=== PATIENT | female | born 1965 | race Caucasian/White ===

== ENCOUNTER → 2020-05-15 15:26 | Outpatient (CLI) | payer BC, SELFPAY ==
[2020-05-15 16:24] LABS: COVID19 -Nasal RAPID Negative (Negative)
== END ==
PROVIDERS: Visit Provider Physician Assistant
DX: Z11.59 Encounter for screening for other viral diseases (principal)
CPT/HCPCS: 87635

== ENCOUNTER → 2020-12-27 14:19 | Outpatient (CLI) | payer BC, SELFPAY ==
--- NOTE | 2020-12-27 14:20 | DI.RAD.S_ITS ---
PROCEDURE: XR CHEST 2V INDICATIONS: cough TECHNIQUE: 2 views of the chest were acquired. COMPARISON: None. FINDINGS: Surgical changes and devices: None. Lungs and pleura: Lungs are clear. No pleural effusions or pneumothorax. Mediastinum: Mediastinal contours are normal. Heart size is normal. Bones and chest wall: No suspicious bony abnormalities. Soft tissues appear unremarkable. IMPRESSION: Normal for age, source of current cough symptoms is not seen. Dictated by: Randal Dunn M.D. on 12/27/2020 at 14:44 Approved by: Randal Dunn M.D. on 12/27/2020 at 14:44
== END ==
PROVIDERS: Referring Provider Physician Assistant; Visit Provider Physician Assistant
DX: R05 Cough (principal)
CPT/HCPCS: 71046

== ENCOUNTER → 2021-07-20 09:53 | Outpatient (CLI) | payer BC, SELFPAY ==
[2021-07-20 10:27] LABS: COVID19 -Nasal RAPID POSITIVE (Negative)
== END ==
PROVIDERS: Visit Provider Physician Assistant
DX: U07.1 COVID-19 (principal)
CPT/HCPCS: 87635

== ENCOUNTER 2023-07-19 14:26 | Emergency (ER) | payer BC, SELFPAY ==
[2023-07-19] VITALS (11 sets, daily range): BP systolic 118–164; BP diastolic 78–89; PULSE 77–89; RESP 16–29; TEMP 36.6; O2SAT 97–100; BMI 21.4
--- NOTE | 2023-07-19 14:37 | DI.RAD.S_ITS ---
PROCEDURE: XR CHEST 1V INDICATIONS: chest pain TECHNIQUE: One view of the chest was acquired. COMPARISON: [facility], CR, XR CHEST 2V, 12/27/2020, 14:25. FINDINGS: Surgical changes and devices: None. Lungs and pleura: Lungs are clear. No pleural effusions or pneumothorax. Mediastinum: Mediastinal contours appear normal. Heart size is normal. Bones and chest wall: No suspicious bony lesions. Overlying soft tissues appear unremarkable. IMPRESSION: No acute cardiopulmonary abnormality is seen. Dictated by: Amrit Biswas M.D. on 07/19/2023 at 15:59 Approved by: Amrit Biswas M.D. on 07/19/2023 at 16:00
[2023-07-19 15:06] LABS: Add Manual Diff / Slide Review NO; Basophils Absolute Auto 0 /uL (0-100); Basophils Percent Auto 0.8 % (0-2); Eosinophils Absolute Auto 100 /uL (0-450); Eosinophils Percent Auto 2.1 % (2-4); Hemoglobin 12.4 g/dL (12.0-16.0); Lymphocytes Absolute Auto 1200 /uL (1100-4500); Lymphocytes Percent Auto 41.9 % (25-40); Mean Corpuscular HGB Conc 33.5 % (30-36); Mean Corpuscular Hemoglobin 32.1 PG (26-34); Monocytes Absolute Auto 400 /uL (0-900); Monocytes Percent Auto 15.3 % (3-14); Neutrophils Absolute Auto 1200 /uL (1500-7000); Neutrophils Percent Auto 39.9 % (50-75); Platelet Count 270 X10^3/uL (150-400); Red Blood Cell Count 3.85 X10^6/uL (4.0-5.2); Red Cell Distribution Width 13.1 % (11.6-14.8); White Blood Cell Count 2.9 X10^3/uL (4.5-11.0)
[2023-07-19] MEDS: ASPIRIN 81 MG CHEW TAB 324 MG PO (15:11)
[2023-07-19 15:13] LABS: Prothrombin Time 11.8 SECONDS (9.4-12.5)
[2023-07-19 15:15] LABS: PTT Partial Thromboplastin Tim 25 SECONDS (25.1-36.5)
[2023-07-19 15:17] LABS: Alanine Aminotransferase 24 IU/L (<35); Albumin 4.2 g/dL (3.5-5.0); Albumin Globulin Ratio 1.4 (1.0-2.8); Alkaline Phosphatase 39 U/L (38-126); Aspartate Aminotransferase 31 IU/L (14-36); Bilirubin Total 0.5 mg/dL (0.2-1.3); Blood Urea Nitrogen 11 mg/dL (7-17); Carbon Dioxide 24 mmol/L (22-32); Chloride 106 mmol/L (98-107); Creatine Kinase 77 U/L (30-135); Estimated Glomerular Filt Rate > 60 mL/min (>60); Globulin 2.9 g/dL (1.7-4.1); Glucose 87 mg/dL (70-100); HEMOLYSIS < 15 (0-50); Lipase 128 U/L (23-300); Magnesium 1.9 mg/dL (1.6-2.3); Potassium 3.9 mmol/L (3.4-5.1); Sodium 136 mmol/L (137-145); Total Protein 7.1 g/dL (6.3-8.2)
[2023-07-19 15:23] LABS: Influenza A - CEPHEID Flu A POSITIVE (NEGATIVE); Influenza B - CEPHEID Flu B NEGATIVE (NEGATIVE); Respiratory Syncytial Virus Negative (Negative)
[2023-07-19 15:27] LABS: COVID-19 CEPHEID 4-PLEX PCR Negative (Negative)
[2023-07-19 15:28] LABS: Troponin I < 0.012 ng/mL (0.01-0.034)
--- NOTE | 2023-07-19 17:18 | PC.NURSE ---
This RN called [facility] for repeat EKG.
[2023-07-19 17:57] LABS: Troponin I < 0.012 ng/mL (0.01-0.034)
--- NOTE | 2023-07-19 18:31 | ED.CHESTPAIN ---
HPI - Chest Pain General Chief Complaint: Chest Pain Stated Complaint: chest pain, sob Time Seen by Provider: 07/19/23 16:49 Source: patient Mode of arrival: Ambulatory Limitations: no limitations History of Present Illness HPI narrative: 57yoF with PMH breast cancer in remission on tamoxifen presents for nonproductive cough and chest pain. Pain is worse when bending over. Has had intermittent body aches and viral symptoms since amy. Patient states she is concerned that she may have developed pneumonia. Taking Motrin at home for pain with some relief. Related Data Home Medications Medication Instructions Recorded Confirmed alendronate 70 mg tablet 70 mg PO 07/19/23 07/19/23 etonogestrel 68 mg subdermal subdermal 07/19/23 07/19/23 implant (Nexplanon) tamoxifen 20 mg tablet 20 mg PO DAILY 07/19/23 07/19/23 trazodone 100 mg tablet mg PO 07/19/23 07/19/23 Previous Rx's Medication Instructions Recorded benzonatate 200 mg capsule 200 mg PO TID PRN cough #60 caps 07/19/23 Allergies Allergy/AdvReac Type Severity Reaction Status Date / Time codeine AdvReac Intermediate gi upset Verified 07/19/23 14:12 Review of Systems Review of Systems Narrative: Negative except as noted above Patient History Medical History Exposure to COVID-19 virus Skin rash URI (upper respiratory infection) Social History Smoking Status: Never smoker Smoking Status: Never smoker Substance Use Type: does not use Exam Initial Vital Signs Initial Vital Signs: Vital Signs Temperature 97.8 F 07/19/23 14:30 Pulse Rate 89 07/19/23 14:30 Respiratory Rate 20 07/19/23 14:30 Blood Pressure 155/87 H 07/19/23 14:30 Pulse Oximetry 99 07/19/23 14:30 Oxygen Delivery Method Room Air 07/19/23 14:30 Const: Awake, alert, no acute distress, nontoxic appearing Cardiac: regular rate, regular rhythm RESP: unlabored, clear bilaterally, no wheezing GI: Atraumatic, soft, nontender, nondistended, no rebound, no guarding MSK: Atraumatic, full range of motion, pulses equal Skin: Warm, Dry, intact, no rashes Neuro: AO x3, CN II-XII grossly intact, moves all extremities Psych: affect normal, mood normal, not suicidal, not homicidal Course Orders Ordered: Discontinued Medications Aspirin (Aspirin 81 Mg Chew Tab) 324 mg PO NOW ONE Stop: 07/19/23 14:38 Last Admin: 07/19/23 15:11 Dose: 324 mg Documented By: Vital Signs Vital signs: Vital Signs - 8 hr 07/19/23 14:30 07/19/23 14:50 07/19/23 14:50 Temperature 97.8 F Pulse Rate 89 83 Respiratory Rate 20 20 Blood Pressure 155/87 H 164/89 H Pulse Oximetry 99 100 Oxygen Delivery Method Room Air 07/19/23 15:00 07/19/23 15:01 07/19/23 15:01 Temperature Pulse Rate 78 79 Respiratory Rate 24 23 Blood Pressure 143/80 H Pulse Oximetry 100 100 Oxygen Delivery Method 07/19/23 15:30 07/19/23 15:30 07/19/23 16:00 Temperature Pulse Rate 80 78 Respiratory Rate 16 22 Blood Pressure 140/85 Pulse Oximetry 99 99 Oxygen Delivery Method 07/19/23 16:00 07/19/23 16:30 07/19/23 16:30 Temperature Pulse Rate 85 Respiratory Rate 26 H Blood Pressure 138/80 136/84 Pulse Oximetry 99 Oxygen Delivery Method 07/19/23 17:00 07/19/23 17:00 07/19/23 17:30 Temperature Pulse Rate 79 77 Respiratory Rate 24 16 Blood Pressure 140/85 Pulse Oximetry 98 97 Oxygen Delivery Method 07/19/23 17:30 07/19/23 18:00 07/19/23 18:00 Temperature Pulse Rate 77 Respiratory Rate 29 H Blood Pressure 129/79 118/78 Pulse Oximetry 98 Oxygen Delivery Method 07/19/23 18:30 07/19/23 18:30 Temperature Pulse Rate 78 Respiratory Rate 22 Blood Pressure 145/89 H Pulse Oximetry 97 Oxygen Delivery Method MDM - Chest Pain Differential Diagnosis Differential diagnosis: Likely pneumothorax, costochondritis and chest pain Lab Data 07/19/23 15:00 07/19/23 15:00 Labs: Lab Results 07/19/23 07/19/23 07/19/23 Range/Units 14:35 15:00 17:15 WBC 2.9 L (4.5-11.0) X10^3/uL RBC 3.85 L (4.0-5.2) X10^6/uL Hgb 12.4 (12.0-16.0) g/dL Hct 37.0 (36-46) % MCV 96.0 (80-100) fL MCH 32.1 (26-34) PG MCHC 33.5 (30-36) % RDW 13.1 (11.6-14.8) % Plt Count 270 (150-400) X10^3/uL Neut % (Auto) 39.9 L (50-75) % Lymph % (Auto) 41.9 H (25-40) % Hanson % (Auto) 15.3 H (3-14) % Eos % (Auto) 2.1 (2-4) % Baso % (Auto) 0.8 (0-2) % Neut # (Auto) 1200 L (3988-1836) /uL Lymph # (Auto) 1200 (3551-8293) /uL Hans[place] # (Auto) 400 (0-900) /uL Eos # (Auto) 100 (0-450) /uL Baso # (Auto) 0 (0-100) /uL PT 11.8 (9.4-12.5) SECONDS INR 1.0 (0.9-1.3) APTT 25 L (25.1-36.5) SECONDS Sodium 136 L (137-145) mmol/L Potassium 3.9 (3.4-5.1) mmol/L Chloride 106 (98-107) mmol/L Carbon Dioxide 24 (22-32) mmol/L BUN 11 (7-17) mg/dL Creatinine 0.92 (0.52-1.04) mg/dL Estimated GFR > 60 (>60) mL/min BUN/Creatinine Ratio 12.0 (6-22) Glucose 87 (70-100) mg/dL Calcium 9.0 (8.4-10.2) mg/dL Magnesium 1.9 (1.6-2.3) mg/dL Total Bilirubin 0.5 (0.2-1.3) mg/dL AST 31 (14-36) IU/L ALT 24 (<35) IU/L Alkaline Phosphatase 39 (38-126) U/L Total Creatine Kinase 77 (30-135) U/L Troponin I < 0.012 < 0.012 (0.01-0.034) ng/mL Total Protein 7.1 (6.3-8.2) g/dL Albumin 4.2 (3.5-5.0) g/dL Globulin 2.9 (1.7-4.1) g/dL Albumin/Globulin Ratio 1.4 (1.0-2.8) Lipase 128 (23-300) U/L SARS-CoV-2 (PCR) Negative (Negative) Influenza A (RT-PCR) Flu a positive H (NEGATIVE) Influenza B (RT-PCR) Flu b negative (NEGATIVE) RSV (PCR) Negative (Negative) ECG Data Interpretation: normal sinus rhythm, normal IA, no ST-T wave changes MDM Narrative Medical decision making narrative: Well-appearing patient with several weeks of symptoms. Patient states her chief concern is that she may have developed pneumonia. Lungs are clear to auscultation bilaterally, saturating well on room air, conversational without dyspnea. Laboratory work shows no leukocytosis, troponins are negative x2, EKG is normal sinus rhythm without ischemic findings, chest x-ray negative for acute process. Patient likely has post viral bronchitis. Of note, she did test positive for influenza a today, however due to the indeterminate timing of her symptoms not a candidate for tamiflu. Patient counseled on lab and imaging findings, recommended supportive care at home, we will send Delia Espinoza to pharmacy of choice. PCP follow up advised. Discharge Plan Departure Patient Disposition: Home Clinical Impression: Influenza, Bronchitis Instructions: DI for Influenza -- Adult Prescriptions: New benzonatate 200 mg capsule 200 mg PO TID PRN (Reason: cough) Qty: 60 0RF No Action tamoxifen 20 mg tablet 20 mg PO DAILY trazodone 100 mg tablet PO alendronate 70 mg tablet 70 mg PO Nexplanon 68 mg implant subdermal Referrals: Miscellaneous,Doctor, MD [Primary Care Provider] - Stand Alone Forms: Patient Portal/API
== END 2023-07-19 19:25 | disposition home or self-care (01) ==
PROVIDERS: Emergency Medicine; Emergency Provider Emergency Medicine
DX: J10.1 Influenza due to other identified influenza virus with other respiratory manifestations (principal); R05.9 Cough, unspecified; Z20.822 Contact with and (suspected) exposure to COVID-19
CPT/HCPCS: 0241U; 36415; 71045; 80053; 82550; 83690; 83735; 84484; 85025; 85610; 85730; 93005; 99284

== ENCOUNTER 2024-05-22 13:05 | Emergency (ER) | payer BC, SELFPAY ==
[2024-05-22 13:08] VITALS: BP 170/92; PULSE 89; RESP 18; TEMP 36.4; O2SAT 100; BMI 21.4
--- NOTE | 2024-05-22 13:13 | DI.RAD.S_ITS ---
PROCEDURE: XR WRIST RT MIN 3V INDICATIONS: fall with pain TECHNIQUE: Four views of the wrist were acquired. COMPARISON: None. FINDINGS: Bones: No fractures or dislocations. No suspicious bony lesions. Soft tissues: No suspicious soft tissue calcifications. IMPRESSION: No acute bony abnormality. Dictated by: Debbie Miller M.D. on 05/22/2024 at 13:49 Approved by: Debbie Miller M.D. on 05/22/2024 at 13:50
--- NOTE | 2024-05-22 13:13 | DI.RAD.S_ITS ---
PROCEDURE: XR HAND RT MIN 3V INDICATIONS: fall with pain TECHNIQUE: 3 views of the hand(s) acquired. COMPARISON: None. FINDINGS: Bones: No fractures or dislocations. Carpal bones are normally aligned. No suspicious bony lesions. Soft tissues: No suspicious soft tissue calcifications. IMPRESSION: No acute bony abnormality. Dictated by: Debbie Miller M.D. on 05/22/2024 at 13:49 Approved by: Debbie Miller M.D. on 05/22/2024 at 13:49
--- NOTE | 2024-05-22 13:45 | ED_ITS ---
HPI - Extremity Injury (Upper) <Erna Smith PA-C - Last Filed: 05/22/24 14:54> General Chief Complaint: Extremity Injury, Upper Stated Complaint: Right hand pain , think she may have broken it Time Seen by Provider: 05/22/24 13:38 Source: patient Mode of arrival: Ambulatory History of Present Illness HPI narrative: 58-year-old female presents for a slip and fall that occurred earlier this morning. She was on her wet in the shower lost her footing and fell with a right outstretched hand. She denied any precipitating events, she is complaining of dorsal right hand pain near the thumb. She tried ibuprofen 400 mg and ice pack prior to arrival. She is right-handed dominant, she is denying any numbness, tingling or loss of sensation. She does endorse some swelling over the dorsal hand. History is significant for Osteoporosis and she takes Fosamax for this. She denies any prior history of any fracture. All other systems are reviewed and are negative. Related Data Home Medications Medication Instructions Recorded Confirmed alendronate 70 mg tablet 70 mg PO 07/19/23 07/19/23 etonogestrel 68 mg subdermal subdermal 07/19/23 07/19/23 implant (Nexplanon) tamoxifen 20 mg tablet 20 mg PO DAILY 07/19/23 07/19/23 trazodone 100 mg tablet mg PO 07/19/23 07/19/23 Previous Rx's Medication Instructions Recorded benzonatate 200 mg capsule 200 mg PO TID PRN cough #60 caps 07/19/23 Allergies Allergy/AdvReac Type Severity Reaction Status Date / Time codeine AdvReac Intermediate gi upset Verified 07/19/23 14:12 Review of Systems <Erna Smith PA-C - Last Filed: 05/22/24 14:54> Review of Systems Narrative: All other systems reviewed and are negative. Patient History <Erna Smith PA-C - Last Filed: 05/22/24 14:54> Medical History Skin rash Exposure to COVID-19 virus URI (upper respiratory infection) Social History Smoking Status: Never smoker Smoking Status: Never smoker alcohol intake frequency: holidays/special occasions only Substance Use Type: does not use Exam <Erna Smith PA-C - Last Filed: 05/22/24 14:54> Initial Vital Signs Initial Vital Signs: Vital Signs Temperature 97.5 F L 05/22/24 13:08 Pulse Rate 89 05/22/24 13:08 Respiratory Rate 18 05/22/24 13:08 Blood Pressure 170/92 H 05/22/24 13:08 Pulse Oximetry 100 05/22/24 13:08 Oxygen Delivery Method Room Air 05/22/24 13:08 Const General: cooperative, healthy appearing, comfortable, well developed, well groomed and No acute distress Neck Neck: normal visual inspection and full ROM Resp Auscultation: clear to auscultation bilaterally Cardio Rate: regular rate Rhythm: regular rhythm Skin General: no rashes or lesions noted, elasticity normal and turgor normal Other: Purple discoloration and swelling over the dorsal right hand just superior to the 1st and 2nd digits. Extrem Right upper extremity: normal capillary refill, edema and hand (Pinch mechanism intact, radial ulnar median nerves are intact. ) Details: normal capillary refill, neuromotor exam normal, neurosensory exam normal, vascular exam, normal ROM of fingers, swelling and ecchymosis Location: of the dorsal hand; no unusual warmth; no cyanosis Other: Negative for snuffbox tenderness, no distal radius focal tenderness. X-rays are negative, she is still hesitant to flex or hyperextend the wrist due to pain. Focal tenderness overlying the contusion on the dorsal hand. No issues identified with the forearm or elbow. No issues identified with the digits. Nails are intact. Both of her rings were removed with lubricant. <Cedrick Shepherd MD - Last Filed: 05/22/24 19:55> Initial Vital Signs Initial Vital Signs: Vital Signs Temperature 97.5 F L 05/22/24 13:08 Pulse Rate 89 05/22/24 13:08 Respiratory Rate 18 05/22/24 13:08 Blood Pressure 170/92 H 05/22/24 13:08 Pulse Oximetry 100 05/22/24 13:08 Oxygen Delivery Method Room Air 05/22/24 13:08 Course <Erna Smith PA-C - Last Filed: 05/22/24 14:54> Orders Ordered: ED Orders 05/22/24 13:13 XR hand RT min 3V Stat XR wrist RT min 3V Stat Discontinued Medications Hydrocodone Bitart/Acetaminophen (Hydrocodone/Acet 5/325 Prepack) 1 bottle MISC DIRECTED ONE Stop: 05/22/24 14:30 Last Admin: 05/22/24 14:37 Dose: 1 bottle Documented By: MADI Vital Signs Vital signs: Vital Signs - 8 hr 05/22/24 13:08 05/22/24 14:39 Temperature 97.5 F L Pulse Rate 89 81 Respiratory Rate 18 Blood Pressure 170/92 H 135/85 Pulse Oximetry 100 99 Oxygen Delivery Method Room Air Room Air <Cedrick Shepherd MD - Last Filed: 05/22/24 19:55> Orders Ordered: ED Orders 05/22/24 13:13 XR hand RT min 3V Stat XR wrist RT min 3V Stat Discontinued Medications Hydrocodone Bitart/Acetaminophen (Hydrocodone/Acet 5/325 Prepack) 1 bottle MISC DIRECTED ONE Stop: 05/22/24 14:30 Last Admin: 05/22/24 14:37 Dose: 1 bottle Documented By: MADI Vital Signs Vital signs: Vital Signs - 8 hr 05/22/24 13:08 05/22/24 14:39 Temperature 97.5 F L Pulse Rate 89 81 Respiratory Rate 18 Blood Pressure 170/92 H 135/85 Pulse Oximetry 100 99 Oxygen Delivery Method Room Air Room Air MDM - Extremity Injury (Upper) <Erna Smith PA-C - Last Filed: 05/22/24 14:54> Imaging Data Extremity x-ray #1: My Impression: No obvious fracture, deferred to radiologist's interpretation below. Radiologist's Impression: PROCEDURE: XR WRIST RT MIN 3V INDICATIONS: fall with pain TECHNIQUE: Four views of the wrist were acquired. COMPARISON: None. FINDINGS: Bones: No fractures or dislocations. No suspicious bony lesions. Soft tissues: No suspicious soft tissue calcifications. IMPRESSION: No acute bony abnormality. Dictated by: Debbie Miller M.D. on 05/22/2024 at 13:49 Approved by: Debbie Miller M.D. on 05/22/2024 at 13:50 Extremity x-ray #2: My Impression: No obvious fracture, deferred to radiologist's interpretation below. Radiologist's Impression: PROCEDURE: XR HAND RT MIN 3V INDICATIONS: fall with pain TECHNIQUE: 3 views of the hand(s) acquired. COMPARISON: None. FINDINGS: Bones: No fractures or dislocations. Carpal bones are normally aligned. No suspicious bony lesions. Soft tissues: No suspicious soft tissue calcifications. IMPRESSION: No acute bony abnormality. Dictated by: Debbie Miller M.D. on 05/22/2024 at 13:49 Approved by: Debbie Miller M.D. on 05/22/2024 at 13:49 [facility] Narrative Medical decision making narrative: No identifiable fracture on radiographs. She has a large contusion of the dorsal hand, she may have a mild wrist sprain as well but she is hesitant to pe rform full range of motion due to discomfort. Supination caused her the most discomfort. No focal neurologic findings or vascular compromise. She is splinted with a thumb spica Velcro splint, we are able to get the rings off thankfully, she has been given an ice pack, and instructions on proper use of anti-inflammatories, she was dispensed a prepack of [place], use caution with this medication as it can cause constipation or sedation. She has had it in the past without difficulty. Please elevate as much as possible and do follow up with your PCP next week. Red flag warning signs reviewed in detail. Discharge Plan Departure Patient Disposition: Home Clinical Impression: Contusion of hand with skin surface intact Right wrist sprain Qualifiers: Encounter type: initial encounter Qualified Code(s): S63.501A - Unspecified sprain of right wrist, initial encounter Instructions: DI for Wrist Sprain, DI for Contusion Activity Restrictions/Additional Instructions: Please do elevate and ice regularly, you also may try submerging the entire hand and a bowl of ice water for 30-45 seconds this will give you could circumferential coverage. You may take ibuprofen with food, I have dispensed a prepack of a narcotic analgesia, please use caution as it can cause sedation and constipation. May also cut these tablets in half. Please do follow up with your primary care provider as sometimes physical therapy is helpful for sprains and strains. Please try to avoid stiffness and do some warm soaks as well and do gentle range of motion of the wrist and fingers. Seek medical attention sooner if anything worsens or you develop any worrisome symptoms. Prescriptions: No Action tamoxifen 20 mg tablet 20 mg PO DAILY trazodone 100 mg tablet PO alendronate 70 mg tablet 70 mg PO Nexplanon 68 mg implant subdermal benzonatate 200 mg capsule 200 mg PO TID PRN (Reason: cough) Qty: 60 0RF Referrals: Miscellaneous,Doctor, [Primary Care Provider] - Stand Alone Forms: Patient Portal/API/Survey ED Sign-out <Cedrick Shepherd MD - Last Filed: 05/22/24 19:55> Cosign ED Attending Cosignature Attestation: I was immediately available in the department for consultation. This documentation has been reviewed and I agree with assessment and plan. Supervised by Cedrick Shepherd MD
[2024-05-22] MEDS: HYDROCODONE/ACET 5/325 PREPACK 1 BOTTLE MISC (14:37)
[2024-05-22 14:39] VITALS: BP 135/85; PULSE 81; O2SAT 99
== END 2024-05-22 14:40 | disposition home or self-care (01) ==
PROVIDERS: Emergency Provider Physician Assistant Medical
DX: S60.221A Contusion of right hand, initial encounter (principal); S63.501A Unspecified sprain of right wrist, initial encounter; W18.2XXA Fall in (into) shower or empty bathtub, initial encounter
CPT/HCPCS: 73110; 73130; 99283